=== PATIENT | female | born 1960 | race Caucasian/White ===

== ENCOUNTER 2022-09-02 15:45 | Emergency (ER) | payer OTHER, SELFPAY ==
[2022-09-02 15:53] VITALS: BP 164/96; PULSE 120; RESP 18; TEMP 36.8; O2SAT 95; BMI 24.5
--- NOTE | 2022-09-02 15:57 | CT_ITS ---
STUDY: CT BRAIN WITHOUT CONTRAST REASON FOR EXAM: Female, 62 years old. New onset seizure RADIATION DOSAGE (If Supplied By Facility): CTDIvol = ( 44.99 ) mGy, DLP = ( 796.11 ) mGycm TECHNIQUE: Transaxial CT imaging of the brain was performed without administration of intravenous contrast material. Individualized dose optimization techniques were used for this CT. COMPARISON: No relevant priors. FINDINGS: Question soft tissue contusion over the left parietal region. Normal calvarium. There appears to be a calcified meningioma arising from the intertable of the right parietal region or the posterior falx cerebri. This measures 1.5 x 1.3 x 1.1 cm. No associated soft tissue edema or mass effect. Normal size ventricles and extra-axial spaces for the patient''s age. Normal white matter tracts of the cerebral hemispheres. Normal basal ganglia and thalami. Normal brainstem. Normal cerebellum. There is no intracranial hemorrhage. There are no findings of an acute ischemic infarction. Minimal mucoperiosteal reaction in the left maxillary sinus. CT/Brain/Head without Contrast IMPRESSION: 1. Question soft tissue hematoma over the left parietal region. 2. Left parietal meningioma. 3. No acute intracranial or calvarial abnormality. 4. Left maxillary sinusitis. AIDOC was utilized to assist in identifying pertinent positive findings in this case. Electronically Signed: Orlin Paul DO at 16:36 EDT Reading Location ID and State: [facility] / [place] Tel [phone], Service support ,
--- NOTE | 2022-09-02 15:58 | EX.ED.DYSGE1 ---
HPI History of Present Illness Chief Complaint: Seizure Informant: patient and EMS Narrative Narrative: Presents by EMS from home concerns for new onset witnessed seizure. Patient reports over family's house for Easter finish Easter meal, states they were sitting around and the next thing she recalls everybody was around her. Reported seizure activities lasting 1 to 2 minutes. Patient was slightly confused initially. No tongue biting no incontinence. History of hypertension and diabetes blood glucose was 250s by EMS. Denies any seizure history. Denies recent illness. Denies recent cough, recent vomiting or diarrhea. Denies any urinary symptoms. Currently feeling back to her baseline. Denies any recent headaches or visual changes. Later her presented, reported she is standing at the kitchen counter, when she suddenly appeared startled, falling back with tonic-clonic activity she was postictal. This lasted 1 to 2 minutes. Confirmed with no seizure history. Prior similar symptoms: No PFSH [facility] Medical History HTN (hypertension) Home Medications lisinopril 5 mg tablet 5 mg PO DAILY 09/02/22 [History Last Taken Unknown] metformin 500 mg tablet 500 mg PO DAILY 09/02/22 [History Last Taken Unknown] Allergy/AdvReac Type Severity Reaction Status Date / Time No Known Allergies Allergy Verified 09/02/22 15:53 Social History Smoking Status: Never smoker [facility] ED Constitutional Constitutional ED: Denies chills, fever(s) or sweats Eyes Eyes: Denies change in vision ENT ENT ED: Denies dysphagia or sore throat Cardiovascular Cardiovascular: Denies chest pain, leg edema, palpitations or racing heartbeat Respiratory/Chest Respiratory/Chest: Denies cough, dyspnea or dyspnea on exertion Gastrointestinal Gastrointestinal: Denies abdominal pain, diarrhea, nausea or vomiting Genitourinary Genitourinary ED: Denies dysuria, hematuria or urinary frequency Musculoskeletal Musculoskeletal: Denies back pain, extremity pain or neck pain Integumentary Denies rash or wounds Neurologic Neurologic: Reports other Details: Seizure ; Denies headache(s), paresthesias or weakness EXAM Physical Exam Const Vital Signs: 09/02/22 15:53 Temperature 98.2 F Temperature Source Oral Pulse Rate 120 H Respiratory Rate 18 Blood Pressure 164/96 H Blood Pressure Mean 118 Pulse Ox 95 Oxygen Delivery Method Room Air Positive well nourished and well developed General Appearance ED: well developed and NAD HEENT Reports moist mucous membranes HEENT Narrative: No tongue abrasion or lacerations normocephalic and atraumatic Eyes PERRL, EOMs intact bilaterally and conjunctivae normal General Eye ED: Yes normal appearance of both eyes Neck no lymphadenopathy and supple General: Negative for tenderness Chest Wall Chest: Negative for tenderness Resp normal respiratory effort and normal air movement Effort and Inspection: symmetric chest movement; Negative for respiratory distress Cardio regular rate, regular rhythm and no murmurs Rate: tachycardic Peripheral Pulses: pulses 2+ throughout GI normal to inspection, nondistended, normoactive bowel sounds and non-tender Palpation: Negative for guarding or rebound tenderness present Back/Spine no CVA tenderness and no thoracic nor lumbar tenderness Extremity normal to inspection General Extremety ED: Negative for edema or tenderness General Extremity: Negative for edema Neuro oriented x3, CN's II-XII intact bilaterally and no sensory deficits noted Sensorium / Orientation: awake and alert Skin no rashes or lesions noted and no wounds MDM MDM MDM Narrative Medical decision making narrative: Interventions / MDM: Differential diagnosis: New onset seizure Diagnosis considered but do not suspect: My EKG interpretation: Sinus rate of 97, no ST or T wave changes QTc 482. Imaging independently reviewed and interpreted by myself: CT brain: Calcified meningioma 1.5 cm left parietal interpreted by radiology. External documents reviewed: N/A Test considered but not ordered:N/A ED course: Patient currently back to baseline there is no focal deficits. Work-up was initiated. CT brain per radiology calcified meningioma 1.5 cm left parietal region. Labs stable hemoglobin at 10.5. Electrolytes are normal. Urine noted, nitrites, leukocytes and 1+, rediscussion with the patient denies any urine frequency or dysuria. She has had UTIs with symptoms previously. Patient currently asymptomatic therefore culture sent we will hold off on antibiotics unless positive cultures. Re-evaluation: stable, new onset seizure first episode no indication for antiepileptics. Discussed disposition plan patient and family, considered admit for observations for work-up with EEG and MRI however she would like to do things outpatient. She is given follow-up with Dr. Bledsoe. Discussed if she did not get in for 4 weeks she needs to call her PCP to coordinate further work-up and referral as needed. Strict return precautions. Seizure precautions of no driving, heavy machinery, bathing or swimming alone, climbing heights. All questions were answered. Disposition discussed with patient/family/significant other: Patient and significant other Case discussed with consulting clinician: N/A Lab Data Attestation: I reviewed the patient's lab results. Labs: Laboratory Results - last 24 hr 09/02/22 09/02/22 09/02/22 16:00 16:00 16:05 WBC 7.4 RBC 3.46 L Hgb 10.5 L Hct 33.4 L MCV 96.5 MCH 30.3 MCHC 31.4 L RDW Std Deviation 65.8 H RDW Coeff of Sharath 18.5 H Plt Count 230 MPV 8.8 Immature Gran % (Auto) 0.500 Neut % (Auto) 65.0 Lymph % (Auto) 26.2 [place] % (Auto) 3.5 Eos % (Auto) 4.1 Baso % (Auto) 0.7 Absolute Neuts (auto) 4.8 Absolute Lymphs (auto) 1.94 Nucleated RBC % 0 Differential Comment SCANNED Polychromasia RARE Sodium 139 Potassium 3.5 Chloride 102 Carbon Dioxide 25.0 Anion Gap 12 BUN 18 Creatinine 1.11 H Estim Creat Clear Calc 50.46 Est GFR (MDRD) Af Amer 64 Est GFR (MDRD) Non-Af 53 L BUN/Creatinine Ratio 16.2 Glucose 237 H Calcium 8.6 Urine Color Yellow Urine Clarity Sl. Cloudy Urine pH 7.0 Ur Specific Rawlings 1.005 Urine Protein 100 H Urine Glucose (UA) Normal Urine Ketones 50 H Urine Occult Blood 10 H Urine Nitrite Positive H Urine Bilirubin Negative Urine Urobilinogen Normal Ur Leukocyte Esterase 25 H Urine RBC 0-5 SEEN Urine WBC 0-5 SEEN Ur Squamous Epith Cells 0-5 SEEN Urine Bacteria 3+ Urine Mucus 0 SEEN Radiography Diagnostic Testing: Clinical Impression(s) from Imaging Studies Brain CT 09/02/22 15:57 IMPRESSION: 1. Question soft tissue hematoma over the left parietal region. 2. Left parietal meningioma. 3. No acute intracranial or calvarial abnormality. 4. Left maxillary sinusitis. AIDOC was utilized to assist in identifying pertinent positive findings in this case. Electronically Signed: Orlin Paul DO at 16:36 EDT Reading Location ID and State: [facility] / [place] Tel [phone], Service support , Discharge Plan Triage Chief Complaint: Seizure ED Provider: Dinesh Prakash Dx/Rx/DC Orders Clinical Impression: Seizure, Anemia, Meningioma Instructions: ED Seizure New Onset Unknown ... Prescriptions: No Action metformin 500 mg tablet 500 mg PO DAILY lisinopril 5 mg tablet 5 mg PO DAILY Primary Care Provider: Gracia Marks NP Referrals: Alexis Bledsoe MD [Non-Staff -Ordering Privileges] - 1-2 Weeks NOT,DEFINED [Non-Staff] - Gracia Marks POACHER WRINGER OPERATOR, POACHER WRINGER OPERATOR-C [Primary Care Provider] - 3-5 Days Activity Restrictions/Additional Instructions: New onset seizure back to baseline. First episode no indication for antiepileptics at this time. Your head CT notes calcified meningioma 1.5 cm upper left parietal region. Lab work hemoglobin 10.5. Normal electrolytes. You will need EEG and MRI of brain as an outpatient for further work-up for your seizure. Follow-up with Dr. Bledsoe, if unable to get in for more than 4 weeks call your PCP to help coordinate earlier follow-up. Urine had bacteria, however you have no symptoms urine culture sent. You will be contacted for antibiotics if positive. No driving, heavy machinery, swimming or bathing alone, climbing heights until cleared by neurology. Return if any recurrent symptoms. Disposition Disposition: Home, Self Care Discharge Date/Time: 09/02/22 17:18
[2022-09-02 16:07] LABS: Mucous, Urine 0 SEEN /hpf (<or=2+)
[2022-09-02 16:10] LABS: Absolute Lymphocyte Count 1.94 X10^3/uL (0.83-4.51); Absolute Neutrophil Count 4.8 X10^3/uL (2.0-7.7); Basophil# 0.05 X10^3/uL; Basophil% 0.7 % (0-1); Eosinophils% 4.1 % (0-5); Hematocrit 33.4 % (37-47); Hemoglobin 10.5 g/dL (12.0-15.0); Lymphocyte # 1.94 X10^3/ul (0.83-4.51); Lymphocyte % 26.2 % (19-41); Mean Corp Hgb Conc 31.4 g/dL (32-36); Mean Corpuscular Hgb 30.3 pg (27.0-32.0); Mean Corpuscular Volume 96.5 fL (81-99); Mean Platelet Vol. 8.8 fl (6.2-12.0); Monocyte# 0.26 X10^3/uL; Monocyte% 3.5 % (0-10); NRBC Flagged by Analyzer 0 % (0-5); Neutrophil # 4.81 X10^3/uL (2.7-7.7); POSITIVE MORPHOLOGY YES; Platelet Count 230 K/mm3 (150-450); RBC Distribution Width CV 18.5 % (11.6-14.6); RBC Distribution Width SD 65.8 fl (35.1-43.9); Red Blood Count 3.46 M/mm3 (4.2-5.4); White Blood Count 7.4 K/mm3 (4.4-11.0)
[2022-09-02 16:11] LABS: Differential Indicated SCAN CRITERIA MET
[2022-09-02 16:18] LABS: Anion Gap 12 (5-15); BUN 18 mg/dL (7-18); BUN/Creat Ratio 16.2 RATIO (10-20); Calcium,Total 8.6 mg/dL (8.5-10.1); Chloride 102 mmol/L (98-107); Creatinine, Serum 1.11 mg/dL (0.55-1.02); EST Glomerular Filtration Rate 53 mL/min (>60); Est Glom Filt Rate - Afr Amer 64 mL/min (>60); Estimated Creatinine Clearance 50.46 ml/min; Glucose 237 mg/dL (74-106); Potassium 3.5 mmol/L (3.5-5.1); Sodium Level 139 mmol/L (136-145)
[2022-09-02 16:18] LABS: Color, Urine Yellow (Yellow); Glucose, Dipstick Normal (Normal); Ketone-Dipstick 50 mg/dl (Negative); Leukocyte Esterase-Dipstick 25 /ul (Negative); Nitrite-Dipstick Positive (Negative); Occult Blood-Urine 10 /ul (Negative); Protein-Dipstick 100 mg/dl (Negative); Specific Gravity, Urine 1.005 (1.002-1.030); Urine Bilirubin Dipstick Negative (Negative); Urine Clarity Sl. Cloudy (Clear); Urine Urobilinogen Normal (Normal)
[2022-09-02 16:25] LABS: Bacteria 3+ /hpf (None Seen); Red Blood Cells-Urine 0-5 SEEN /hpf (0-5); Squamous Epithelial Cells - UA 0-5 SEEN /hpf (5-10); White Blood Cells 0-5 SEEN /hpf (0-5)
[2022-09-02 16:47] LABS: Differential Comment SCANNED; Polychromasia RARE
--- NOTE | 2022-09-02 16:50 | NURSING ---
NO OLD EKGS
== END 2022-09-02 17:18 | disposition home or self-care (01) ==
PROVIDERS: Emergency Provider Emergency Medicine; PCP Clinical Nurse Specialist; Visit Provider Emergency Medicine
DX: R56.9 Unspecified convulsions (principal); D32.9 Benign neoplasm of meninges, unspecified; E11.9 Type 2 diabetes mellitus without complications; D64.9 Anemia, unspecified; I10 Essential (primary) hypertension; Z79.899 Other long term (current) drug therapy; Z79.84 Long term (current) use of oral hypoglycemic drugs
CPT/HCPCS: 70450; 80048; 81001; 85025; 87077; 87086; 87088; 87186; 93005; 99285